=== PATIENT | male | born 1985 | race Two or more races ===

== ENCOUNTER 2020-05-13 21:00 | Emergency (ER) | payer SELFPAY ==
[~2020-05-13] VITALS: Ht 180.3 cm; Wt 90.7 kg
[2020-05-13 21:00] VITALS: BP 130/87
== END 2020-05-13 21:45 | disposition home or self-care (01) ==
LOC: EDBD 21:00 → ER 21:09
DX: R56.9 Unspecified convulsions (principal); F17.210 Nicotine dependence, cigarettes, uncomplicated